=== PATIENT | female | born 1955 ===

== ENCOUNTER → 2017-05-14 | Outpatient (CLI) | payer OTHER ==
[~2017-05-14] VITALS: Ht 152.4 cm; Wt 81.6 kg
[~2017-05-14] MED LIST: COZAAR100 MG PO; FLONASE16 GM NS; HYZAAR 100-121 UDTAB; HYZAAR 100-121 UDTAB PO; HYZAAR 100-251 UDTAB; HYZAAR 50-12.1 UDTAB; NORVASC5 MG; OMEPRAZOLE20 MG; VITACEL TABLET1 TAB; VITACEL TABLET1 TAB PO; VITAMIN E400 UNI7 PO; ZYRTEC10 MG PO
== END | disposition home or self-care (01) ==
LOC: PPHC 16:12
DX: Z76.0 Encounter for issue of repeat prescription (principal); I10 Essential (primary) hypertension